=== PATIENT | male | born 1985 | race Caucasian/White ===

== ENCOUNTER 2016-05-14 14:14 | Emergency (ER) | payer SELFPAY ==
[~2016-05-14] VITALS: Ht 167.6 cm; Wt 79.4 kg
[2016-05-14 14:49] VITALS: BP 136/69
--- NOTE | 2016-05-14 15:40 | NUR ---
PT. PRESENTS TO ED C/O GENERALIZED RASH X 2 WEEKS, PT. STATES ITS ITCHY AND PAINFUL, PT. RECEIVED UNKNOW INJECTION 2 WEEKS AGO AND THE RASH STARTED AFTER THAT, NO VISIBLE SIGNS OF DISTRESS NOTED, BREATHING EVEN AND UNLABORED, AAOX4, AMBULATORY, GAIT STEADY
--- NOTE | 2016-05-14 15:40 | NUR ---
Patient ambulated to bed 06.
--- NOTE | 2016-05-14 15:54 | NUR ---
Dr. ocasio evaluating patient at bedside.
--- NOTE | 2016-05-14 16:09 | NUR ---
Patient discharged with v/s stable. Written and verbal after care instructions given and explained. Patient alert, oriented and verbalized understanding of instructions. Ambulatory with steady gait. All questions addressed prior to discharge. ID band removed. Patient advised to follow up with PMD. Rx of ATARAX AND PREDNISONE given. Patient educated on indication of medication including possible reaction and side effects. Opportunity to ask questions provided and answered.
[2016-05-14 16:10] VITALS: BP 136/69
== END 2016-05-14 16:09 | disposition home or self-care (01) ==
LOC: MED 14:14
DX: L30.9 Dermatitis, unspecified (principal); L50.9 Urticaria, unspecified
CPT/HCPCS: 99283

== ENCOUNTER 2022-05-23 09:41 | Emergency (ER) | payer MEDICAID ==
[~2022-05-23] VITALS: Ht 162.6 cm; Wt 88.9 kg
[2022-05-23 09:58] VITALS: BP 121/76
[2022-05-23] MEDS ORDERED: KETOROLAC 30 MG/ML VIAL IM ONE (10:25)
[2022-05-23 10:54] LABS: APPEARANCE,URINE CLEAR (CLEAR); BILIRUBIN,URINE NEGATIVE (NEGATIVE); BLOOD, URINE NEGATIVE (NEGATIVE); COLOR,URINE YELLOW (YELLOW); LEUKOCYTE ESTERASE ,URINE NEGATIVE (NEGATIVE); NITRITE, URINE NEGATIVE (NEGATIVE); UGLUCOSE NEGATIVE (NEGATIVE)
[2022-05-23] MEDS ORDERED: LID5T TP (11:03)
[2022-05-23] MEDS ORDERED: CYCL-711 PO (11:03)
[2022-05-23] MEDS ORDERED: IBUP-2213 PO (11:03)
[2022-05-23 11:23] VITALS: BP 121/76
--- NOTE | 2022-05-23 11:23 | NUR ---
Patient discharged with v/s stable. Written and verbal after care instructions given and explained. Patient alert, oriented and verbalized understanding of instructions. Ambulatory with steady gait. All questions addressed prior to discharge. ID band removed. Patient advised to follow up with PMD. Rx of CYCLOBENZAPRINE, LIDOCAINE, IBUPROFEN (SENT) given. Patient educated on indication of medication including possible reaction and side effects. Opportunity to ask questions provided and answered. WORK NOTE GIVEN
== END 2022-05-23 11:23 | disposition home or self-care (01) ==
LOC: MED 09:41
DX: S39.012A Strain of muscle, fascia and tendon of lower back, initial encounter (principal); Z79.899 Other long term (current) drug therapy; Z79.1 Long term (current) use of non-steroidal anti-inflammatories (NSAID); X58.XXXA Exposure to other specified factors, initial encounter; Y92.89 Other specified places as the place of occurrence of the external cause; Y93.89 Activity, other specified; Y99.8 Other external cause status
CPT/HCPCS: 81003; 96372; 99283; J1885